=== PATIENT | female | born 1985 | race Caucasian/White ===

== ENCOUNTER 2018-08-01 10:25 | Inpatient (IN) | payer BC, OTHER ==
[2018-08-01] MEDS ORDERED: Oxytocin/Normal Saline 30 UNIT/500 ML BAG IV SCH (13:00)
[2018-08-01] MEDS ORDERED: Lidocaine 1% 30 ML SDV INJECT PRN (13:17)
[2018-08-01] MEDS ORDERED: Tranexamic Acid 1,000 MG in Sodium Chloride 0.9% 100 ML IV PRN (13:17)
[2018-08-01] MEDS ORDERED: Ondansetron 4 MG/2 ML SDV IV PRN (13:17)
[2018-08-01] MEDS ORDERED: Lactated Ringers 500 ML IV ONE (13:17)
[2018-08-01] MEDS ORDERED: Methylergonovine 0.2 MG/1 ML Amp IM PRN (13:17)
[2018-08-01] MEDS ORDERED: Carboprost Tromethamine 250 MCG/1 ML Amp IM PRN (13:17)
[2018-08-01] MEDS ORDERED: Sodium Chloride 0.9% 10 ML Syringe FLUSH PRN (13:17)
[2018-08-01] MEDS ORDERED: Misoprostol 400 MCG (4 X 100 MCG TAB) RECTAL PRN (13:17)
[2018-08-01] MEDS ORDERED: Lactated Ringers 1,000 ML IV SCH (13:30)
--- NOTE | 2018-08-01 18:05 | PCM.LDHP ---
L&D History of Present Illness - General Date of Service: 08/01/18 (Admit H&P) Admit Problem/Dx: Patient Status Order with Admit Dx/Problem 08/01/18 13:17 Patient Status [ADT] Routine Admission Diagnosis/Problem Admission Diagnosis/Problem Term Source of Information: Patient, Family, Old Records, Provider, RN History Limitations: Reports: No Limitations - History of Present Illness Introduction:: 33yo WF @ 39w4d in for induction due to hx of macrosomia. see episode for details. Timing/Duration: Reports: minutes: (intermittent, irregular every several minutes, mild), intermittent Location, : Reports: Uterus Quality: Reports: Ache, Dull Severity: Mild Associated Symptoms: Reports: vaginal discharge - Related Data Allergies/Adverse Reactions: Allergies Allergy/AdvReac Type Severity Reaction Status Date / Time No Known Allergies Allergy Verified 08/01/18 11:51 Home Medications: Home Meds FLUoxetine HCl [Fluoxetine HCl] 10 mg PO DAILY 03/16/15 [History] Levothyroxine Sodium 75 mcg PO DAILY 03/16/15 [History] Pnv with Ca,No.72/Iron/Fa [ Vitamin Plus Low Iron] 1 tab-cap PO DAILY [History] Past Medical History - Past Health History Medical/Surgical History: Denies Medical/Surgical History Other Cardiovascular History: gestational hypertension with HELLP variant Gastrointestinal History: Reports: GERD Other Gastrointestinal History: gerd with LABEL SEWER History: Reports: : 3 Para: 2 LMP (Approximate): Other OB/BYN History: HELLP/pre-eclampsia with first Psychiatric History: Reports: Anxiety, Depression Endocrine/Metabolic History: Reports: Hypothyroidism Hematologic History: Reports: Other (See Below) (maternal anemia) Other Hematologic History: hx HELLP with last Oncologic (Cancer) History: Reports: Basal Cell Carcinoma (nodular basal cell) Dermatologic History: Reports: Other (See Below) Other Dermatologic History: Nodular Basal cell carcinoma - Infectious Disease History Infectious Disease History: Reports: Chicken Pox - Past Surgical History Female Surgical History: Reports: Other (See Below) Other Female Surgeries/Procedures: mass of right breast Social & Family History - Family History Family Medical History: Noncontributory - Tobacco Use Smoking Status *Q: Never Smoker Second Hand Smoke Exposure: No - Caffeine Use Caffeine Use: Reports: Coffee - Recreational Drug Use Recreational Drug Use: No - Sexual History Sexual History: Reports: Single Partner () - Living Situation & Occupation Living situation: Reports: Occupation: Employed ( to [employer], 2 boys, expecting 3rd son) 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 H&P Review of Systems - Review of Systems: Review Of Systems: ROS reveals no pertinent complaints other than HPI. L&D Exam - Exam Exam: See Below - Vital Signs Vital Signs: Last Vital Signs Temp 98.4 F 08/01/18 14:30 Pulse 87 08/01/18 14:30 Resp 18 08/01/18 14:30 BP 115/69 08/01/18 14:30 Pulse Ox Weight: 185 lb - OB Specific Fundal Height In cm: 40 Contraction Duration (sec): 60-100 Contraction Frequency (min): 2-4 Contraction Intensity: Moderate Movement: Active Heart Tones: Present Heart Tones per Min: 160 - Lua Score Lua Score Cervix Position: Posterior Lua Score Consistency: Soft Lua Score Effacement: 31-50% Lua Score Dilation: 3-4 cm Lua Score 's Station: -3 Lua Score Total: 5 - Exam General: Alert, Oriented HEENT: PERRLA, Conjunctiva Clear, EACs Clear, EOMI, Hearing Intact, Mucosa Moist & [place], Nares Patent, Normal Nasal Septum, Posterior Pharynx Clear, TMs Clear Neck: Supple, Trachea Midline Lungs: Clear to Auscultation, Normal Respiratory Effort Cardiovascular: Regular Rate, Regular Rhythm GI/Abdominal Exam: Normal Bowel Sounds, Soft, Non-Tender, No Organomegaly, No Distention, No Abnormal Bruit, No Mass, Pelvis Stable Rectal Exam: Normal Exam, Normal Rectal Tone Genitourinary: Normal external exam, Normal bimanual exam, Normal speculum exam Back Exam: Normal Inspection, Full Range of Motion Extremities: Normal Inspection, Normal Range of Motion, Non-Tender, No Pedal Edema, Normal Capillary Refill Skin: Warm, Dry, Intact Neurological: Cranial Nerves Intact, Reflexes Equal Bilateral Psychiatric: Alert, Normal Affect, Normal Mood - Patient Data Lab Results Last 24 hrs: Laboratory Results - last 24 hr 08/01/18 Range/Units 13:05 WBC 9.6 (5.0-10.0) 10^3/uL RBC 4.43 (4.2-5.4) 10^6/uL Hgb 13.2 (12.0-16.0) g/dL Hct 38.6 (37.0-47.0) % MCV 87.1 (80-100) fL MCH 29.8 (27.0-34.0) pg MCHC 34.2 (33.0-35.0) g/dL Plt Count 137 L (150-450) 10^3/uL Result Diagrams: 08/01/18 13:05 - Problem List (1) Term SNOMED Code(s): 10180662 ICD Code: Z34.90 - ENCNTR FOR SUPRVSN OF NORMAL , UNSP, UNSP TRIMESTER Status: Acute Current Visit: Yes (2) Hx of macrosomia in in prior , currently SNOMED Code(s): 71696335744747, 48844232171295 ICD Code: O09.299 - SUPRVSN OF PREG W POOR REPRODCTV OR OBSTET HISTORY, UNSP TRI Status: Acute Current Visit: Yes (3) Blood type A+ SNOMED Code(s): 436953858 ICD Code: Z67.10 - TYPE A BLOOD, RH POSITIVE Status: Acute Current Visit : No (4) GERD (gastroesophageal reflux disease) SNOMED Code(s): 416744026 ICD Code: K21.9 - GASTRO-ESOPHAGEAL REFLUX DISEASE WITHOUT ESOPHAGITIS Status: Acute Current Visit: No (5) Group B Streptococcus not isolated SNOMED Code(s): 091948318 ICD Code: VSQ5753 - Status: Acute Current Visit: No (6) Hypothyroidism affecting in third trimester SNOMED Code(s): 849939398, 078557586 ICD Code: O99.283 - ENDO, NUTRITIONAL AND METAB DISEASES COMP PREG, THIRD TRI ; E03.9 - HYPOTHYROIDISM, UNSPECIFIED Status: Acute Current Visit: No (7) Mixed anxiety depressive disorder SNOMED Code(s): 576310892 ICD Code: F41.8 - OTHER SPECIFIED ANXIETY DISORDERS Status: Acute Current Visit: No (8) Rubella immune SNOMED Code(s): 449425336 ICD Code: Z78.9 - OTHER SPECIFIED HEALTH STATUS Status: Acute Current Visit: No Problem List Initiated/Reviewed/Updated: Yes Orders Last 24hrs: Active Orders 24 hr Category Date Time Status Patient Status [ADT] Routine ADT 08/01/18 13:17 Active Communication Order [RC] ASDIRECTED Care 08/01/18 13:17 Active Notify Provider Vital Signs OB [RC] ASDIRECTED Care 08/01/18 13:17 Active Notify Provider [RC] PRN Care 08/01/18 13:17 Active Pump Management, Intrathecal [RC] ASDIRECTED Care 08/01/18 13:23 Active Up ad Ellie [RC] ASDIRECTED Care 08/01/18 13:17 Active Vital Signs [RC] ,20 Care 08/01/18 13:17 Active Clear Liquid Diet [DIET] Diet 08/01/18 Lunch Active Acetaminophen [Tylenol] Med 08/01/18 13:17 Active 650 mg PO Q4H PRN Carboprost Tromethamine [Hemabate DS] Med 08/01/18 13:17 Active 250 mcg IM ASDIRECTED PRN Lactated Ringers [Ringers, Lactated] 1,000 ml Med 08/01/18 13:00 Active IV ASDIRECTED Lactated Ringers [Ringers, Lactated] 1,000 ml Med 08/01/18 13:30 Active IV ASDIRECTED Lidocaine 1% [Xylocaine-MPF 1%] Med 08/01/18 13:17 Active 30 ml INJECT ASDIRECTED PRN Methylergonovine [Methergine] Med 08/01/18 13:17 Active 0.2 mg IM ASDIRECTED PRN Ondansetron [Zofran] Med 08/01/18 13:17 Active 4 mg IV Q4H PRN Oxytocin/Normal Saline [Pitocin in NS 30 UNIT/500 ML] Med 08/01/18 13:00 Active 30 unit in 500 ml IV TITRATE Sodium Chloride 0.9% [Saline Flush] Med 08/01/18 13:17 Active 10 ml FLUSH ASDIRECTED PRN Tranexamic Acid [Cyklokapron] 1,000 mg Med 08/01/18 13:17 Active Sodium Chloride 0.9% [Normal Saline] 100 ml IV ONETIME miSOPROStol [Cytotec] Med 08/01/18 13:17 Active 800 mcg RECTAL ASDIRECTED PRN Saline Lock Insert [OM.PC] Routine Oth 08/01/18 13:17 Ordered Resuscitation Status Routine Resus Stat 08/01/18 13:17 Ordered Medication Orders Acetaminophen (Tylenol) 650 mg PO Q4H PRN PRN Reason: Pain (Mild 1-3) and fever Carboprost Tromethamine (Hemabate Ds) 250 mcg IM ASDIRECTED PRN PRN Reason: HEMORRHAGE Lactated Ringer's (Ringers, Lactated) 1,000 mls @ 125 mls/hr IV ASDIRECTED SHAYY Oxytocin/Sodium Chloride (Pitocin In Ns 30 Unit/500 Ml) 30 unit in 500 mls @ 2 mls/hr IV TITRATE SHAYY; Protocol Last Titration: 08/01/18 17:25 Dose: 12 munits/min, 12 mls/hr Titration: 08/01/18 16:55 Dose: 10 munits/min, 10 mls/hr Titration: 08/01/18 16:18 Dose: 8 munits/min, 8 mls/hr Titration: 08/01/18 15:25 Dose: 6 munits/min, 6 mls/hr Titration: 08/01/18 14:38 Dose: 4 munits/min, 4 mls/hr Admin: 08/01/18 13:47 Dose: 2 munits/min, 2 mls/hr Lactated Ringer's (Ringers, Lactated) 1,000 mls @ 125 mls/hr IV ASDIRECTED [facility] Last Admin: 08/01/18 13:47 Dose: 125 mls/hr Tranexamic Acid 1,000 mg/ (Sodium Chloride) 110 mls @ 660 mls/hr IV ONETIME PRN PRN Reason: Bleeding Lidocaine HCl (Xylocaine-Mpf 1%) 30 ml INJECT ASDIRECTED PRN PRN Reason: Perineal Repair Methylergonovine Maleate (Methergine) 0.2 mg IM ASDIRECTED PRN PRN Reason: Hemorrhage Misoprostol (Cytotec) 800 mcg RECTAL ASDIRECTED PRN PRN Reason: Hemorrhage Ondansetron HCl (Zofran) 4 mg IV Q4H PRN PRN Reason: Nausea/Vomiting Sodium Chloride (Saline Flush) 10 ml FLUSH ASDIRECTED PRN PRN Reason: Keep Vein Open Assessment/Plan Comment:: Assessment: 33yo @ 39w4d with hx of macrosomia candidate for induction with ripe cervix blood type A+ GBS negative rubella immune hypothyroidism depression/anxiety gestational thrombocytopenia with Hx of HELLP/pre-E Plan: admit for induction--pitocin as discussed, AROM (clear fluid) Will check pre-E/HELLP labs monitor closely continue fluoxetine 10mg daily hypothyroidism--continue 112mcg all questions answered. plans for intrathecal. anticipate vaginal delivery. b
[2018-08-01] MEDS: Lactated Ringers 1,000 ML IV SCH ×2 (19:03→19:28)
[2018-08-01] MEDS ORDERED: fentaNYL 100 MCG/2 ML SDV ONE (19:08)
[2018-08-01] MEDS ORDERED: EPINEPHrine 1 MG/ML SDV ONE (19:08)
--- NOTE | 2018-08-01 19:38 | PCM.PRNOTE ---
- Free Text/Narrative Note: Requested to provide analgesia to full term patient in severe pain. Upon entering the room, patient is sitting on edge of bed complaining of severe abdominal/pelvic pain and discomfort. Procedure was discussed with patient including adverse outcomes and expectations. Pt consented to analgesia, SAB/ IT. Pt placed into a proper sitting position. Landmarks for SAB/IT were identified and marked. Hands were washed and appropriate PPE was applied. Back was prepped with betadine x3. A sterile, transparent, fenestrated drape was applied. Excess betadine was removed. Using 3 mL of a 1% lidocaine solution , a skin wheel was placed at the L2/L3 interspace. A 24 ga (4 inch) Pencan spinal needle was inserted until positive for CSF. Negative for heme or paresthesias. Injected fentanyl 30 mcg, sufentanil 25 mcg, and 7.5 mg of a 0.75 % bupivacaine solution with an epi wash. Pt was placed left lateral position for approximately 20 minutes. There were zero complications or adverse outcomes. Will continue to monitor. Procedure Date & Time: 08/01/[id number]
[2018-08-01] MEDS ORDERED: Zolpidem 5 MG Tab PO PRN (20:58)
[2018-08-01] MEDS ORDERED: Simethicone 80 MG Tab.Chew PO PRN (20:58)
[2018-08-01] MEDS ORDERED: Benzocaine/Menthol 20%-0.5% Spray 56 GM Canister TOP PRN (20:58)
--- NOTE | 2018-08-01 21:10 | PCM.DEL ---
L & D Note - General Info Date of Service: 08/01/18 (time of delivery: 2025) Mother's Due Date: 08/04/18 (39w4d) - Delivery Note Labor: Induced by Oxytocin Cervical Ripening Method: Oxytocin Delivery Outcome: Livebirth Delivery Method: Spontaneous Vaginal Delivery-Single Infant Delivery Mode: Vacuum Extraction Presentation: Right Occiput Anterior (SERGIO) Nuchal Cord: Present, Reduced Anesthesia Type: Intrathecal Episiotomy Type: None Laceration: 1st Degree Suture type: Vicryl Suture size: 3-0 Placenta: Intact, Spontaneous Cord: 3 Vessels Estimated Blood Loss: 200 (minimal) Resuscitation Needed: No [place]: Suctioned, Bulb Syringe, Stimulated, Warmed Provider: Danielle Manjarrez Second Stage Interventions: Reports: Pushing Ineffectively (due to excellent block from intrathecal, therefore vacuum X 3 cxns), Other (see below) (pushing with staff holding legs back.) Delivery Comments (Free Text/Narrative):: Deana delivered viable 7lb 14oz male over intact perineum with help of vacuum with 3 cxns. staff assisted with holding legs back for her. watching with mirror in place for her. nuchal cord X 1 reduced. baby suctioned and stimulated after , and placed on mother's chest for skin to skin bonding. cord clamped X 2 and cut by FOB/[employer]. 3VC noted and cord blood obtained. Placenta delivered with traction and inspected, found to be intact and complete. uterus firm and pitocin infusing. minimal blood loss, <200cc. 1st degree skin break on posterior fourchette repaired with running 3-0 vicryl. both mom and baby boy doing well. routine and nursery cares and orders. hmb Induction Criteria - Lua Score Lua Score Dilation: 3-4 cm Lua Score Effacement: 40-50% Lua Score 's Station: -2 Lua Score Consistency: Soft Lua Score Cervix Position: Midposition Lua Score Total: 7 Lua Score Presenting Part: Reports: Cephalic - Induction Gestational Age >/= 39 wks: Yes Estimated Pelvis: Reports: Adequate Reassuring Monitoring Strip: Yes Absence of Tachy Systole: Yes - Augmentation Estimated Pelvis: Reports: Adequate Weight Estimated:: Reports: AGA Reassuring Monitoring Strip: Yes Absence of Tachy Systole: Yes Vacuum Extractor Progress Note - Alternative Labor Strategies Considered Alternative Labor Strategies Considered:: Reports: Yes Strategies Considered:: Reports: Contraction Intensity Adequate, Position Changes Used to Facilitate Rotation & Descent, Empty Bladder, Rest Indications Considered:: Reports: Yes Indications:: Reports: Shortening of 2nd Stage for Maternal Benefit, Suspicion of Immediate or Potential Compromise Time Out:: Reports: Yes - Patient Prepared Patient Prepared:: Reports: Yes Informed Consent:: Reports: Yes, Verbal Risks: Reports: Yes Anesthesia/Analgesia Adequate:: Reports: Yes Comments:: intrathecal excellent. patient actually unable to push optimally due to block. - Probability of Success High Probability of Success:: Reports: Yes Weight Estimated:: Reports: AGA Patient Diabetic:: Reports: No Pelvis Adequate:: Reports: Yes Position:: OA Asynclitic:: Reports: No Station:: +3 - Application Time Maximum Application Time & Number of Pop-Offs Predetermined:: Reports: Yes Number of Times Cup Disengaged:: 0 Type of Vacuum Used:: Reports: Cup: [place] type Vacuum Extraction: Successful Comments:: cup on with 3 cxns, easily delivered. - Exit Strategy Exit strategy available:: Reports: Yes and resuscitation teams readily available:: Reports: Yes Consult as indicated:: not indicated. - General Info Date of Service: 08/01/18 (time of delivery 2025) - Review of Systems Gastrointestinal: Reports: Nausea, Vomiting - Patient Data Vitals - Most Recent: Last Vital Signs Temp 98.2 F 08/01/18 17:15 Pulse 93 08/01/18 18:00 Resp 18 08/01/18 18:00 BP 109/71 08/01/18 18:00 Pulse Ox Weight - Most Recent: 185 lb Lab Results Last 24 Hours: Laboratory Results - last 24 hr 08/01/18 08/01/18 08/01/18 Range/Units 13:05 13:05 20:05 WBC 9.6 (5.0-10.0) 10^3/uL RBC 4.43 (4.2-5.4) 10^6/uL Hgb 13.2 (12.0-16.0) g/dL Hct 38.6 (37.0-47.0) % MCV 87.1 (80-100) fL MCH 29.8 (27.0-34.0) pg MCHC 34.2 (33.0-35.0) g/dL Plt Count 137 L (150-450) 10^3/uL BUN 6 L (7-18) mg/dL Creatinine 0.4 L (0.6-1.3) mg/dL Est Cr Clr Drug Dosing 156.74 mL/min Estimated GFR (MDRD) > 60 Uric Acid 5.8 (2.6-7.2) mg/dL AST 22 (10-42) IU/L ALT 9 L (10-60) IU/L Lactate Dehydrogenase 137 (91-180) IU/L Ur Random Creatinine 32 mg/dL U Random Total Protein 4 (0.00-9.9) mg/dL Protein/Creatinin Ratio 0.12 Med Orders - Current: Current Medications Acetaminophen (Tylenol) 650 mg PO Q4H PRN PRN Reason: Pain (Mild 1-3) and fever Benzocaine/Menthol (Dermoplast Pain Relief [place]) 0 gm TOP Q4H PRN PRN Reason: Perineal comfort measures Carboprost Tromethamine (Hemabate Ds) 250 mcg IM ASDIRECTED PRN PRN Reason: HEMORRHAGE Docusate Sodium (Colace) 100 mg PO BID PRN PRN Reason: Constipation Lactated Ringer's (Ringers, Lactated) 1,000 mls @ 125 mls/hr IV ASDIRECTED [facility] Last Admin: 08/01/18 19:28 Dose: 125 mls/hr Oxytocin/Sodium Chloride (Pitocin In Ns 30 Unit/500 Ml) 30 unit in 500 mls @ 2 mls/hr IV TITRATE [facility]; Protocol Last Titration: 08/01/18 18:50 Dose: 16 munits/min, 16 mls/hr Lactated Ringer's (Ringers, Lactated) 1,000 mls @ 125 mls/hr IV ASDIRECTED [facility] Last Admin: 08/01/18 13:47 Dose: 125 mls/hr Tranexamic Acid 1,000 mg/ (Sodium Chloride) 110 mls @ 660 mls/hr IV ONETIME PRN PRN Reason: Bleeding Ibuprofen (Motrin) 800 mg PO Q8H PRN PRN Reason: Mild Pain or Fever Lidocaine HCl (Xylocaine-Mpf 1%) 30 ml INJECT ASDIRECTED PRN PRN Reason: Perineal Repair Methylergonovine Maleate (Methergine) 0.2 mg IM ASDIRECTED PRN PRN Reason: Hemorrhage Misoprostol (Cytotec) 800 mcg RECTAL ASDIRECTED PRN PRN Reason: Hemorrhage Ondansetron HCl (Zofran) 4 mg IV Q4H PRN PRN Reason: Nausea/Vomiting Last Admin: 08/01/18 18:57 Dose: 4 mg Prenat Multivit/[place]/Iron/Folic Ac ( Plus Iron) 1 each PO DAILY SHAYY Simethicone (Simethicone) 80 mg PO Q4H PRN PRN Reason: Gas Sodium Chloride (Saline Flush) 10 ml FLUSH ASDIRECTED PRN PRN Reason: Keep Vein Open Zolpidem Tartrate (Ambien) 5 mg PO BEDTIME PRN PRN Reason: Insomnia Discontinued Medications Epinephrine HCl (Adrenalin) Confirm Administered Dose 1 mg .ROUTE .STK-MED ONE Stop: 08/01/18 19:09 Fentanyl (Sublimaze) Confirm Administered Dose 100 mcg .ROUTE .STK-MED ONE Stop: 08/01/18 19:09 Lactated Ringer's (Ringers, Lactated) 500 mls @ 500 mls/hr IV .BOLUS ONE Stop: 08/01/18 14:16 Sufentanil Citrate (Sufenta) Confirm Administered Dose 50 mcg .ROUTE .STK-MED ONE Stop: 08/01/18 19:09 - Problem List & Annotations (1) Term SNOMED Code(s): 10831639 Code(s): Z34.90 - ENCNTR FOR SUPRVSN OF NORMAL , UNSP, UNSP TRIMESTER Status: Acute Current Visit: Yes (2) Hx of macrosomia in infant in prior , currently SNOMED Code(s): 95575715451027, 85454740066883 Code(s): O09.299 - SUPRVSN OF PREG W POOR REPRODCTV OR OBSTET HISTORY, UNSP TRI Status: Acute Current Visit: Yes (3) Blood type A+ SNOMED Code(s): 263270833 Code(s): Z67.10 - TYPE A BLOOD, RH POSITIVE Status: Acute Current Visit: No (4) GERD (gastroesophageal reflux disease) SNOMED Code(s): 682876871 Code(s): K21.9 - GASTRO-ESOPHAGEAL REFLUX DISEASE WITHOUT ESOPHAGITIS Status: Acute Current Visit: No (5) Group B Streptococcus not isolated SNOMED Code(s): 587943803 Code(s): DPP2976 - Status: Acute Current Visit: No (6) Hypothyroidism affecting in third trimester SNOMED Code(s): 743971322, 947226460 Code(s): O99.283 - ENDO, NUTRITIONAL AND METAB DISEASES COMP PREG, THIRD TRI ; E03.9 - HYPOTHYROIDISM, UNSPECIFIED Status: Acute Current Visit: No (7) Mixed anxiety depressive disorder SNOMED Code(s): 843249353 Code(s): F41.8 - OTHER SPECIFIED ANXIETY DISORDERS Status: Acute Current Visit: No (8) Rubella immune SNOMED Code(s): 165227577 Code(s): Z78.9 - OTHER SPECIFIED HEALTH STATUS Status: Acute Current Visit: No (9) Vaginal delivery SNOMED Code(s): 312941838 Code(s): O80 - ENCOUNTER FOR FULL-TERM UNCOMPLICATED DELIVERY Status: Acute Current Visit: Yes (10) Vacuum extraction, delivered, current hospitalization SNOMED Code(s): 553459627 Code(s): O66.5 - ATTEMPTED APPLICATION OF VACUUM EXTRACTOR AND FORCEPS Status: Acute Current Visit: Yes (11) Mother currently breast-feeding SNOMED Code(s): 703608525 Code(s): UOE7218 - Status: Acute Current Visit: Yes (12) Gestational thrombocytopenia without hemorrhage, antepartum SNOMED Code(s): 50695803 Code(s): O99.119 - OTH DIS OF BLD/BLD-FORM ORG/IMMUN MECHNSM COMP PREG,UNSP TRI; D69.6 - THROMBOCYTOPENIA, UNSPECIFIED Status: Acute Current Visit: Yes - Problem List Review Problem List Initiated/Reviewed/Updated: Yes - My Orders Last 24 Hours: My Active Orders 08/01/18 13:00 Lactated Ringers [Ringers, Lactated] 1,000 ml IV ASDIRECTED Oxytocin/Normal Saline [Pitocin in NS 30 UNIT/500 ML] 30 unit in 500 ml IV TITRATE 08/01/18 13:17 Patient Status [ADT] Routine Communication Order [RC] ASDIRECTED Notify Provider Vital Signs OB [RC] ASDIRECTED Notify Provider [RC] PRN Up ad Ellie [RC] ASDIRECTED Vital Signs [RC] 08,20 Acetaminophen [Tylenol] 650 mg PO Q4H PRN Carboprost Tromethamine [Hemabate DS] 250 mcg IM ASDIRECTED PRN Lidocaine 1% [Xylocaine-MPF 1%] 30 ml INJECT ASDIRECTED PRN Methylergonovine [Methergine] 0.2 mg IM ASDIRECTED PRN Ondansetron [Zofran] 4 mg IV Q4H PRN Sodium Chloride 0.9% [Saline Flush] 10 ml FLUSH ASDIRECTED PRN Tranexamic Acid [Cyklokapron] 1,000 mg Sodium Chloride 0.9% [Normal Saline] 100 ml IV ONETIME miSOPROStol [Cytotec] 800 mcg RECTAL ASDIRECTED PRN Saline Lock Insert [OM.PC] Routine Resuscitation Status Routine 08/01/18 13:23 Pump Management, Intrathecal [RC] ASDIRECTED 08/01/18 13:30 Lactated Ringers [Ringers, Lactated] 1,000 ml IV ASDIRECTED 08/01/18 20:58 Consult to Newspaper Writer [CONS] Routine Benzocaine/Menthol [Dermoplast Pain Relief [place]] See Dose Instructions TOP Q4H PRN Docusate Sodium [Colace] 100 mg PO BID PRN Ibuprofen [Motrin] 800 mg PO Q8H PRN Simethicone 80 mg PO Q4H PRN Zolpidem [Ambien] 5 mg PO BEDTIME PRN Assess Lochia [WOMSER] Per Unit Routine Assess Uterine Involution [WOMSER] Per Unit Routine Breast Pump [WOMSER] Per Unit Routine Ice Therapy [OM.PC] Per Unit Routine Perineal Care [OM.PC] Per Unit Routine Sitz Bath [OM.PC] Per Unit Routine 08/01/18 Lunch Clear Liquid Diet [DIET] 08/02/18 09:00 FLUoxetine [PROzac] 10 mg PO DAILY Ferrous Sulfate 325 mg PO DAILY Pnv with Ca,No.72/Iron/Fa [ Vitamin Plus Low Iron] 1 tab-cap PO DAILY Vit with Ca/FA/Iron [ Plus Iron] 1 each PO DAILY 08/02/18 21:59 Levothyroxine 112 mcg PO DAILY - Plan Plan:: Assessment: 33yo @ 39w4d with hx of macrosomia candidate for induction with ripe cervix blood type A+ GBS negative rubella immune hypothyroidism depression/anxiety gestational thrombocytopenia with Hx of HELLP/pre-E Plan: admit for induction--pitocin as discussed, AROM (clear fluid) Will check pre-E/HELLP labs monitor closely continue fluoxetine 10mg daily hypothyroidism--continue 112mcg all questions answered. plans for intrathecal. anticipate vaginal delivery. b Update: VAVD @ 2025 without complication viable male weighing 3575g, 7lb 14oz APGARs pending 8 & 9 doing well nausea, vomiting--resolving pre-E/HELLP labs WNL, BP ok. routine orders. 1st degree repair. hmb
[2018-08-02] MEDS: Ibuprofen 800 MG Tab PO PRN ×3 (01:32→17:31)
[2018-08-02] MEDS: Acetaminophen 325 MG Tab PO PRN ×3 (05:53→21:36)
[2018-08-02] MEDS: Ferrous Sulfate 325 MG Tab PO SCH (08:27)
[2018-08-02] MEDS: FLUoxetine 10 MG Cap PO SCH (08:27)
[2018-08-02] MEDS: Prenatal Multivitamin with Calcium/Folic Acid/Iron Tab PO SCH (08:27)
[2018-08-02] MEDS: Docusate Sodium 100 MG Cap PO PRN ×2 (08:27→21:36)
[2018-08-02] MEDS ORDERED: [UNRECOGNIZED DRUG - REMARK] PO SCH (09:00)
[2018-08-02] MEDS: Levothyroxine 112 MCG Tab PO SCH (09:32)
--- NOTE | 2018-08-02 11:25 | PCM.PNPP ---
- General Info Date of Service: 08/02/18 (PPD#1) Admission Dx/Problem (Free Text): Patient Status Order with Admit Dx/Problem 08/01/18 13:17 Patient Status [ADT] Routine Admission Diagnosis/Problem Admission Diagnosis/Problem Term VAVD viable male Subjective Update: doing well. afebrile, VSS flow ok. bottom sore Functional Status: Reports: Pain Controlled, Tolerating Diet, Ambulating, Urinating - Review of Systems General: Reports: No Symptoms HEENT: Reports: No Symptoms Pulmonary: Reports: No Symptoms Cardiovascular: Reports: No Symptoms Gastrointestinal: Reports: No Symptoms Genitourinary: Reports: Other (flow decreasing, cramping ok) Musculoskeletal: Reports: No Symptoms Skin: Reports: No Symptoms Neurological: Reports: No Symptoms Psychiatric: Reports: No Symptoms - General Info Date of Service: 08/02/18 - Patient Data Vital Signs - Most Recent: Last Vital Signs Temp 98.7 F 08/02/18 08:00 Pulse 78 08/02/18 08:00 Resp 16 08/02/18 08:00 BP 105/67 08/02/18 08:00 Pulse Ox 100 08/02/18 08:00 Weight - Most Recent: 185 lb Lab Results - Last 24 Hours: Laboratory Results - last 24 hr 08/01/18 08/01/18 08/01/18 Range/Units 13:05 13:05 20:05 WBC 9.6 (5.0-10.0) 10^3/uL RBC 4.43 (4.2-5.4) 10^6/uL Hgb 13.2 (12.0-16.0) g/dL Hct 38.6 (37.0-47.0) % MCV 87.1 (80-100) fL MCH 29.8 (27.0-34.0) pg MCHC 34.2 (33.0-35.0) g/dL Plt Count 137 L (150-450) 10^3/uL BUN 6 L (7-18) mg/dL Creatinine 0.4 L (0.6-1.3) mg/dL Est Cr Clr Drug Dosing 156.74 mL/min Estimated GFR (MDRD) > 60 Uric Acid 5.8 (2.6-7.2) mg/dL AST 22 (10-42) IU/L ALT 9 L (10-60) IU/L Lactate Dehydrogenase 137 (91-180) IU/L Ur Random Creatinine 32 mg/dL U Random Total Protein 4 (0.00-9.9) mg/dL Protein/Creatinin Ratio 0.12 Med Orders - Current: Current Medications Acetaminophen (Tylenol) 650 mg PO Q4H PRN PRN Reason: Pain (Mild 1-3) and fever Last Admin: 08/02/18 05:53 Dose: 650 mg Benzocaine/Menthol (Dermoplast Pain Relief [place]) 0 gm TOP Q4H PRN PRN Reason: Perineal comfort measures Last Admin: 08/02/18 01:32 Dose: 1 spray Carboprost Tromethamine (Hemabate Ds) 250 mcg IM ASDIRECTED PRN PRN Reason: HEMORRHAGE Docusate Sodium (Colace) 100 mg PO BID PRN PRN Reason: Constipation Last Admin: 08/02/18 08:27 Dose: 100 mg Ferrous Sulfate (Ferrous Sulfate) 325 mg PO DAILY [facility] Last Admin: 08/02/18 08:27 Dose: 325 mg Fluoxetine HCl (Prozac) 10 mg PO DAILY [facility] Last Admin: 08/02/18 08:27 Dose: 10 mg Lactated Ringer's (Ringers, Lactated) 1,000 mls @ 125 mls/hr IV ASDIRECTED [facility] Last Admin: 08/01/18 19:28 Dose: 125 mls/hr Oxytocin/Sodium Chloride (Pitocin In Ns 30 Unit/500 Ml) 30 unit in 500 mls @ 2 mls/hr IV TITRATE [facility]; Protocol Last Titration: 08/01/18 22:35 Dose: Infused Tranexamic Acid 1,000 mg/ (Sodium Chloride) 110 mls @ 660 mls/hr IV ONETIME PRN PRN Reason: Bleeding Ibuprofen (Motrin) 800 mg PO Q8H PRN PRN Reason: Mild Pain or Fever Last Admin: 08/02/18 09:32 Dose: 800 mg Levothyroxine Sodium (Levothyroxine) 112 mcg PO DAILY@0700 [facility] Last Admin: 08/02/18 09:32 Dose: 112 mcg Lidocaine HCl (Xylocaine-Mpf 1%) 30 ml INJECT ASDIRECTED PRN PRN Reason: Perineal Repair Methylergonovine Maleate (Methergine) 0.2 mg IM ASDIRECTED PRN PRN Reason: Hemorrhage Misoprostol (Cytotec) 800 mcg RECTAL ASDIRECTED PRN PRN Reason: Hemorrhage Ondansetron HCl (Zofran) 4 mg IV Q4H PRN PRN Reason: Nausea/Vomiting Last Admin: 08/01/18 18:57 Dose: 4 mg Prenat Multivit/Customer Program Specialist/Iron/Folic Ac ( Plus Iron) 1 each PO DAILY [facility] Last Admin: 08/02/18 08:27 Dose: 1 each Simethicone (Simethicone) 80 mg PO Q4H PRN PRN Reason: Gas Sodium Chloride (Saline Flush) 10 ml FLUSH ASDIRECTED PRN PRN Reason: Keep Vein Open Zolpidem Tartrate (Ambien) 5 mg PO BEDTIME PRN PRN Reason: Insomnia Discontinued Medications Epinephrine HCl (Adrenalin) Confirm Administered Dose 1 mg .ROUTE .STK-MED ONE Stop: 08/01/18 19:09 Last Admin: 08/01/18 21:44 Dose: Not Given Fentanyl (Sublimaze) Confirm Administered Dose 100 mcg .ROUTE .STK-MED ONE Stop: 08/01/18 19:09 Last Admin: 08/01/18 21:44 Dose: Not Given Lactated Ringer's (Ringers, Lactated) 500 mls @ 500 mls/hr IV .BOLUS ONE Stop: 08/01/18 14:16 Last Admin: 08/01/18 21:44 Dose: Not Given Lactated Ringer's (Ringers, Lactated) 1,000 mls @ 125 mls/hr IV ASDIRECTED [facility] Last Admin: 08/01/18 13:47 Dose: 125 mls/hr Sufentanil Citrate (Sufenta) Confirm Administered Dose 50 mcg .ROUTE .STK-MED ONE Stop: 08/01/18 19:09 Last Admin: 08/01/18 21:44 Dose: Not Given - Interaction Disposition, : in Room with Family Interaction: Holding Infant Feeding: Breastfed ; Nursed Well, Continues to Breastfeed Support Person: - Recovery Exam Fundal Tone: Firm Fundal Level: 1 Fingerbreadths Below Umbilicus Fundal Placement: Midline Lochia Amount: Small Lochia Color: Rubra/Red Perineum Description: Intact, Minimal Bruising/Swelling Episiotomy/Laceration: Approximated Bladder Status: Voiding Urinary Elimination: Voided - Exam General: Alert, Oriented HEENT: Pupils Equal Neck: Supple Lungs: Clear to Auscultation, Normal Respiratory Effort Cardiovascular: Regular Rate, Regular Rhythm GI/Abdominal Exam: Normal Bowel Sounds, Soft, Non-Tender, No Organomegaly, No Distention, No Abnormal Bruit, No Mass, Pelvis Stable Extremities: Normal Inspection, Normal Range of Motion, Non-Tender, No Pedal Edema, Normal Capillary Refill Skin: Warm, Dry, Intact Wound/Incisions: Healing Well Neurological: No New Focal Deficit Psy/Mental Status: Alert, Normal Affect, Normal Mood - Problem List & Annotations (1) Term SNOMED Code(s): 40786999 Code(s): Z34.90 - ENCNTR FOR SUPRVSN OF NORMAL , UNSP, UNSP TRIMESTER Status: Acute Current Visit: Yes (2) Hx of macrosomia in in prior , currently SNOMED Code(s): 77055260713375, 71489515448244 Code(s): O09.299 - SUPRVSN OF PREG W POOR REPRODCTV OR OBSTET HISTORY, UNSP TRI Status: Acute Current Visit: Yes (3) Blood type A+ SNOMED Code(s): 110716978 Code(s): Z67.10 - TYPE A BLOOD, RH POSITIVE Status: Acute Current Visit: No (4) GERD (gastroesophageal reflux disease) SNOMED Code(s): 849847606 Code(s): K21.9 - GASTRO-ESOPHAGEAL REFLUX DISEASE WITHOUT ESOPHAGITIS Status: Acute Current Visit: No (5) Group B Streptococcus not isolated SNOMED Code(s): 459695730 Code(s): DUN9852 - Status: Acute Current Visit: No (6) Hypothyroidism affecting in third trimester SNOMED Code(s): 005145631, 717126783 Code(s): O99.283 - ENDO, NUTRITIONAL AND METAB DISEASES COMP PREG, THIRD TRI ; E03.9 - HYPOTHYROIDISM, UNSPECIFIED Status: Acute Current Visit: No (7) Mixed anxiety depressive disorder SNOMED Code(s): 132570506 Code(s): F41.8 - OTHER SPECIFIED ANXIETY DISORDERS Status: Acute Current Visit: No (8) Rubella immune SNOMED Code(s): 940731689 Code(s): Z78.9 - OTHER SPECIFIED HEALTH STATUS Status: Acute Current Visit: No (9) Vaginal delivery SNOMED Code(s): 669265002 Code(s): O80 - ENCOUNTER FOR FULL-TERM UNCOMPLICATED DELIVERY Status: Acute Current Visit: Yes (10) Vacuum extraction, delivered, current hospitalization SNOMED Code(s): 795391093 Code(s): O66.5 - ATTEMPTED APPLICATION OF VACUUM EXTRACTOR AND FORCEPS Status: Acute Current Visit: Yes (11) Mother currently breast-feeding SNOMED Code(s): 476902498 Code(s): GZO9266 - Status: Acute Current Visit: Yes (12) Gestational thrombocytopenia without hemorrhage, antepartum SNOMED Code(s): 53930074 Code(s): O99.119 - OTH DIS OF BLD/BLD-FORM ORG/IMMUN MECHNSM COMP PREG,UNSP TRI; D69.6 - THROMBOCYTOPENIA, UNSPECIFIED Status: Acute Current Visit: Yes - Problem List Review Problem List Initiated/Reviewed/Updated: Yes - My Orders Last 24 Hours: My Active Orders 08/01/18 13:00 Lactated Ringers [Ringers, Lactated] 1,000 ml IV ASDIRECTED Oxytocin/Normal Saline [Pitocin in NS 30 UNIT/500 ML] 30 unit in 500 ml IV TITRATE 08/01/18 13:17 Patient Status [ADT] Routine Notify Provider Vital Signs OB [RC] ASDIRECTED Notify Provider [RC] PRN Up ad Ellie [RC] ASDIRECTED Vital Signs [RC] 08,20 Acetaminophen [Tylenol] 650 mg PO Q4H PRN Carboprost Tromethamine [Hemabate DS] 250 mcg IM ASDIRECTED PRN Lidocaine 1% [Xylocaine-MPF 1%] 30 ml INJECT ASDIRECTED PRN Methylergonovine [Methergine] 0.2 mg IM ASDIRECTED PRN Ondansetron [Zofran] 4 mg IV Q4H PRN Sodium Chloride 0.9% [Saline Flush] 10 ml FLUSH ASDIRECTED PRN Tranexamic Acid [Cyklokapron] 1,000 mg Sodium Chloride 0.9% [Normal Saline] 100 ml IV ONETIME miSOPROStol [Cytotec] 800 mcg RECTAL ASDIRECTED PRN Saline Lock Insert [OM.PC] Routine Resuscitation Status Routine 08/01/18 20:58 Consult to Air Support Control Officer [CONS] Routine Benzocaine/Menthol [Dermoplast Pain Relief [place]] See Dose Instructions TOP Q4H PRN Docusate Sodium [Colace] 100 mg PO BID PRN Ibuprofen [Motrin] 800 mg PO Q8H PRN Simethicone 80 mg PO Q4H PRN Zolpidem [Ambien] 5 mg PO BEDTIME PRN Assess Lochia [WOMSER] Per Unit Routine Assess Uterine Involution [WOMSER] Per Unit Routine Breast Pump [WOMSER] Per Unit Routine Ice Therapy [OM.PC] Per Unit Routine Perineal Care [OM.PC] Per Unit Routine Sitz Bath [OM.PC] Per Unit Routine 08/01/18 22:45 Insert Urinary Catheter [OM.PC] Q24H 08/02/18 09:00 FLUoxetine [PROzac] 10 mg PO DAILY Ferrous Sulfate 325 mg PO DAILY Levothyroxine 112 mcg PO DAILY@0700 Vit with Ca/FA/Iron [ Plus Iron] 1 each PO DAILY 08/02/18 Breakfast Regular Diet [DIET] - Plan Plan:: Assessment: 33yo @ 39w4d with hx of macrosomia candidate for induction with ripe cervix blood type A+ GBS negative rubella immune hypothyroidism depression/anxiety gestational thrombocytopenia with Hx of HELLP/pre-E Plan: admit for induction--pitocin as discussed, AROM (clear fluid) Will check pre-E/HELLP labs monitor closely continue fluoxetine 10mg daily hypothyroidism--continue 112mcg all questions answered. plans for intrathecal. anticipate vaginal delivery. cox [facility] Update: VAVD @ 2025 without complication viable male weighing 3575g, 7lb 14oz APGARs pending 8 & 9 doing well nausea, vomiting--resolving pre-E/HELLP labs WNL, BP ok. routine orders. 1st degree repair. cox [facility] DOS: 08-02-18 doing well on PPD #1 continue current care. recheck hgb and PLT count tomorrow morning and likely discharge home. all questions answered. cox monett
[2018-08-03] MEDS: Ibuprofen 800 MG Tab PO PRN (01:21)
[2018-08-03] MEDS: Acetaminophen 325 MG Tab PO PRN ×2 (01:22→07:44)
[2018-08-03 07:31] VITALS: BP 107/68
[2018-08-03] MEDS: Ferrous Sulfate 325 MG Tab PO SCH ×2 (07:42→08:53)
[2018-08-03] MEDS: Levothyroxine 112 MCG Tab PO SCH (07:43)
[2018-08-03] MEDS: FLUoxetine 10 MG Cap PO SCH ×2 (07:43→08:53)
[2018-08-03] MEDS: Docusate Sodium 100 MG Cap PO PRN (07:43)
[2018-08-03] MEDS: Prenatal Multivitamin with Calcium/Folic Acid/Iron Tab PO SCH ×2 (07:43→08:53)
[2018-08-03] MEDS ORDERED: fentaNYL 100 MCG/2 ML SDV ITHECAL ONE (08:30)
[2018-08-03] MEDS ORDERED: EPINEPHrine 1 MG/ML SDV ONE (08:30)
== END 2018-08-03 09:15 | disposition home or self-care (01) | DRG 807 ==
LOC: DL.OB 12:36 → OBSVTOIN 20:26
PROVIDERS: ADMIT Family Medicine; ATTEND Family Medicine
PROC: 10D07Z6 Extraction of Products of Conception, Vacuum, Via Natural or Artificial Opening (ICD-10-PCS; principal; 2018-08-01)
PROC: 3E033VJ Introduction of Other Hormone into Peripheral Vein, Percutaneous Approach (ICD-10-PCS; 2018-08-01)
PROC: 0HQ9XZZ Repair Perineum Skin, External Approach (ICD-10-PCS; 2018-08-01)
PROC: 10907ZC Drainage of Amniotic Fluid, Therapeutic from Products of Conception, Via Natural or Artificial Opening (ICD-10-PCS; 2018-08-01)
PROC: 3E0R3BZ Introduction of Anesthetic Agent into Spinal Canal, Percutaneous Approach (ICD-10-PCS; 2018-08-01)
PROC: 00HU33Z Insertion of Infusion Device into Spinal Canal, Percutaneous Approach (ICD-10-PCS; 2018-08-01)
DX: O99.284 Endocrine, nutritional and metabolic diseases complicating childbirth (principal); O99.344 Other mental disorders complicating childbirth; O99.62 Diseases of the digestive system complicating childbirth; K21.9 Gastro-esophageal reflux disease without esophagitis; F41.8 Other specified anxiety disorders; O99.113 Other diseases of the blood and blood-forming organs and certain disorders involving the immune mechanism complicating pregnancy, third trimester; D69.6 Thrombocytopenia, unspecified; O69.81X0 Labor and delivery complicated by cord around neck, without compression, not applicable or unspecified; O70.0 First degree perineal laceration during delivery; Z3A.39 39 weeks gestation of pregnancy; Z37.0 Single live birth
CPT/HCPCS: 36415; 51701; 59409; 82565; 82570; 83615; 84156; 84450; 84460; 84520; 84550; 85027; A9270-GY; J0171; J2405; J2590; J3010; J7120